=== PATIENT | female | born 1930 | race Caucasian/White ===

== ENCOUNTER 2017-03-22 06:46 | Inpatient (IN) ==
--- NOTE | 2017-03-21 17:10 | Discharge Summary ---
<Jayshree Wiggins E - Last Filed: 03/21/17 17:07> Date of Encounter: 03/21/17 - Discharge Diagnosis (1) Osteoarthritis of left hip Priority: Primary Status: Chronic Qualifiers: Osteoarthritis type: unspecified Qualified Code(s): M16.12 - Unilateral primary osteoarthritis, left hip (2) HTN (hypertension) Priority: Secondary Status: Chronic Qualifiers: Hypertension type: unspecified Qualified Code(s): I10 - Essential (primary ) hypertension (3) HLD (hyperlipidemia) Priority: Secondary Status: Chronic Qualifiers: Hyperlipidemia type: unspecified Qualified Code(s): E78.5 - Hyperlipidemia , unspecified (4) Hypothyroidism Priority: Secondary Status: Chronic Qualifiers: Hypothyroidism type: unspecified Qualified Code(s): E03.9 - Hypothyroidism , unspecified - Discharge Medications Home Medications: Aspirin Enteric Coated [Aspirin EC] 325 mg PO DAILY 21 Days #21 tablet. [Rx] OxyCODONE Immed Rel [Roxicodone 5 MG] 5 mg PO Q6HR PRN 7 Days #28 tablet [Rx] Ascorbate Calcium [Vitamin C] 500 mg PO DAILY 03/22/17 [History] Beclomethasone Diprop 40mcg [QVAR 40 mcg] 1 puff IH DAILY 03/22/17 [History] Cartilage/Collagen/Bor/Hyalur [Joint Health Tablet] 1 tab PO DAILY 03/22/17 [ History] Carvedilol 12.5 mg PO BID 03/22/17 [History] Fluticasone Propionate Nasal [Flonase] 1 spr NS DAILY 03/22/17 [History] Garlic [Daily Garlic Once-A-Day] 400 mg PO DAILY 03/22/17 [History] Gluc/Mark-MSM#1/C/Norberto/Ryan/Bor [Osteo Bi-Flex Caplet] 1 tab PO DAILY 03/22/17 [ History] Lecithin [Gram-O-Leci] 1,000 mg PO DAILY 03/22/17 [History] Levothyroxine Sodium [Levoxyl] 50 mcg PO DAILY 03/22/17 [History] Meloxicam [Mobic] 7.5 mg PO DAILY 03/22/17 [History] NIFEdipine [Afeditab Cr] 60 mg PO DAILY 03/22/17 [History] Nabumetone 750 mg PO BID 03/22/17 [History] [place]-3/Dha/Epa/Fish Oil [[place] 3 500 Softgel] 1 tab PO DAILY 03/22/17 [History] Ubidecarenone [Co Q-10] 50 mg PO DAILY 03/22/17 [History] Vitamin B Complex [B Complex] 1 tab PO DAILY 03/22/17 [History] Allergies/Adverse Reactions: 3 Allergy/AdvReac Type Severity Reaction Status Date / Time No Known Allergies Allergy Verified 03/22/17 08:18 Primary care physician: Navi Vang, - Patient Status Disposition: Home, Self-Care Condition: Good - Discharge Instructions Follow Up With: Navi Vang MD [Primary Care Provider] - - Hospital Course Hospital course: Ms. Armstrong is a 86 year old female - Time Spent with Patient Total time spent providing and/or coordinating discharge services: <Olman Mueller - Last Filed: 03/25/17 08:35> Date of Encounter: 03/25/17 Time of Encounter: 08:33 - Discharge Diagnosis (1) Osteoarthritis of left hip Priority: Primary Status: Chronic Qualifiers: Osteoarthritis type: unspecified Qualified Code(s): M16.12 - Unilateral primary osteoarthritis, left hip (2) HTN (hypertension) Priority: Secondary Status: Chronic Qualifiers: Hypertension type: unspecified Qualified Code(s): I10 - Essential (primary ) hypertension (3) HLD (hyperlipidemia) Priority: Secondary Status: Chronic Qualifiers: Hyperlipidemia type: unspecified Qualified Code(s): E78.5 - Hyperlipidemia , unspecified (4) Hypothyroidism Priority: Secondary Status: Chronic Qualifiers: Hypothyroidism type: unspecified Qualified Code(s): E03.9 - Hypothyroidism , unspecified (5) History of total left hip arthroplasty Priority: Primary Status: Acute (6) Acute blood loss anemia Priority: Primary Status: Acute (7) Hyponatremia Priority: Primary Status: Acute Primary care physician: Navi Vang, - Patient Status Functional capacity at discharge: uses cane/walker Overall status at discharge: patient is progressing back to baseline - Hospital Course Hospital course: Ms. Armstrong is a 86 year old female Status post left total hip replacement The patient had an uneventful postoperative course. They received antibiotics and physical therapy and were discharged in stable condition. There will follow -up in the office in 2 weeks. - Time Spent with Patient Total time spent providing and/or coordinating discharge services:
--- NOTE | 2017-03-21 17:12 | Physician Discharge Referral ---
ExtendedCare Referral Info Transfer To: [facility] Provider in Charge: Dr Olman Mueller - Diagnosis (1) History of total left hip arthroplasty Priority: Primary Status: Acute (2) Osteoarthritis of left hip Priority: Primary Status: Chronic (3) HTN (hypertension) Priority: Secondary Status: Chronic (4) HLD (hyperlipidemia) Priority: Secondary Status: Chronic (5) Hypothyroidism Priority: Secondary Status: Chronic Expected Duration of Placement: less than 30 days Prognosis: Good Aware of Diagnosis: Patient Aware of Prognosis: Patient - Transfer Medications Prescriptions: OxyCODONE Immed Rel [Roxicodone 5 MG] 5 mg PO Q6HR PRN 7 Days #28 tablet PRN Reason: Severe Pain Aspirin Enteric Coated [Aspirin EC] 325 mg PO DAILY 21 Days #21 tablet. Home Medications: Aspirin Enteric Coated [Aspirin EC] 325 mg PO DAILY 21 Days #21 tablet. [Rx] OxyCODONE Immed Rel [Roxicodone 5 MG] 5 mg PO Q6HR PRN 7 Days #28 tablet [Rx] Allergies/Adverse Reactions: 3 Allergy/AdvReac Type Severity Reaction Status Date / Time No Known Allergies Allergy Verified 03/02/17 16:11 - Respiratory Orders Smoking Cessation: Smoking cessation has been advised. For more information, call the [place] Tobacco Quit Line at 4-921-OSAC-NOW. - Ancillary Orders May use pressure relief devices daily prn, May go on HERMANN w/family/respon alliance party w /meds at nurse discretion PRN, May consult with Dentist, Golf Course Keeper, Auto Dismantler PRN - Mobility Orders Chair, Ambulate - Rehabiliation Orders Rehab Potential: Good Rehab Orders: Evaluation for Physical Therapy, Evaluation for Occupational Therapy Other: Total Hip replacement Precautions Apply cold therapy 3-6x/day for 20 minutes at a time. Encourage ambulation throughout the day and incentive spirometer 10x/hour. Elevate affected extremity as tolerated. Brace: Wear hip abduction pillow when laying/sleeping - Treatments Skin tear care topically daily PRN per policy List/Other: Opsite placed. Keep dressing intact until first follow up appointment. If > 50% saturated, notify office, remove dressing and place appropriate dressing back in place. Leave Zipline intact. Opsite dressing is water resistant, not water- proof. OK to shower, but do not get dressing wet. - Diet Orders Regular CERTIFICATION: I certify that the transfer of the above named patient to an Extended Care Facility is necessary for the continuing treatment of the diagnosis listed. The above information is true and accurate reflection of patient's current condition. Confidential - Redisclosure prohibited without a patient's written consent.
--- NOTE | 2017-03-22 06:58 | History & Physical Report ---
Date of Encounter: 03/22/17 Time of Encounter: 06:58 24 Hour HP Update - Instructions Instructions: If the History and Physical is less than 30 days old and was completed prior to A.M. admission and or procedure and has NOT been updated on calendar day of procedure please complete this update prior to performing procedure. - Update Patient reports changes in Medical Condition: No Changes in examination, assessment, or condition: No Changes in Medication: No Preop tests/diagnostics Reviewed: Yes Surgery Remains Indicated: Yes Consent for Planned Operative Procedure(s) Verified: Yes - Pre-Operative Checklist Preoperative Checklist Indicated: No Prophylactic Antibiotic Ordered: Yes Is VTE Prophylaxis Indicated?: Yes
[2017-03-22] MEDS ORDERED: Lidocaine -MPF 1% 2 ML VIAL ID ONE (07:05)
[2017-03-22] MEDS ORDERED: CeFAZolin Syr 2,000MG/20 ML 2,000 MG/20 ML SYRINGE IVPB ONE (07:05)
[2017-03-22] MEDS ORDERED: Lidocaine -MPF 4% 5 ML AMPUL ONE (07:07)
[2017-03-22] MEDS ORDERED: *HR* Succinylcholine 200 MG/10 ML VIAL IVP ONE (07:13)
[2017-03-22] MEDS ORDERED: Lidocaine -MPF 2% 2 ML VIAL ONE (07:13)
[2017-03-22] MEDS ORDERED: Ondansetron 4 MG/2 ML VIAL ONE (07:13)
[2017-03-22] MEDS ORDERED: Dexamethasone 4 MG/ML VIAL ONE (07:13)
[2017-03-22] MEDS ORDERED: Plasma-Lyte A (PH 7.4) 1,000 ML IVC SCH (07:15)
[2017-03-22] MEDS ORDERED: *HR* Propofol 200 MG/20 ML VIAL IVP ONE (07:16)
[2017-03-22] MEDS ORDERED: Acetaminophen IV 1,000 MG/100 ML INFUS..BTL ONE (07:19)
[2017-03-22] MEDS ORDERED: Bupivacaine/Clonidine Syringe 1 EACH SYRINGE ONE (07:20)
[2017-03-22] MEDS ORDERED: Ethanol\\Acetic Acid\\Na Ace\\Ben 1,000 ML IRRIG.SOLN IR ONE (07:29)
[2017-03-22] MEDS ORDERED: *HR* Morphine Sulfate/PF 10 MG/10 ML AMPUL ONE (07:53)
--- NOTE | 2017-03-22 08:02 | Anesthesia Evaluation PreOp ---
Date of Encounter: 03/22/17 Time of Encounter: 08:00 - Past History Planned Operation: left hip Cardiac History: HTN Pulmonary History: Asthma PAINTER TOUCH UP History: Denies Any Significant HX Other Medical History: Thyroid Anesthesia History: No Prior Anesthetic Complications Alcohol Use: none Drug use: none Medications and Allergies Aspirin Enteric Coated [Aspirin EC] 325 mg PO DAILY 21 Days #21 tablet. [Rx] OxyCODONE Immed Rel [Roxicodone 5 MG] 5 mg PO Q6HR PRN 7 Days #28 tablet [Rx] 3 Allergy/AdvReac Type Severity Reaction Status Date / Time No Known Allergies Allergy Verified 03/02/17 16:11 - Meds/Allergy Pre-op Review Medications Reviewed: Yes Allergies Reviewed: Yes Beta Blockers on Current Med List: Yes If Beta Blockers taken, Date/Time (Last Dose taken): coreg at 5am Anesthesia Results - Imaging EKG: report reviewed (NSR) Anesthesia Exam Vital Signs/O2 Sat/Glucose, Most Recent Temp Pulse Resp BP Pulse Ox 97.8 F 71 18 137/74 96 03/22/17 07:11 03/22/17 07:11 03/22/17 07:11 03/22/17 07:11 03/22/17 07:11 Height: 62" NPO (# of Hours): >8hr - HEENT Pupil (Motor): Pupils equal Mallampati: II Teeth: Missing Denture Type: Upper: Complete, Lower: Partial Oral Opening: Greater than 3 - PAINTER TOUCH UP LOC: Oriented PAINTER TOUCH UP Motor: Normal RUE, Normal LUE, Normal RLE, Normal LLE, Normal Face PAINTER TOUCH UP Sensory: Normal: RUE, LUE, RLE, LLE, Face - Cardiac Rhythm: Regular - Pulmonary Breath Sounds: bilateral Clear Respiratory Effort: Symmetrical Anesthesia Assess/Plan ASA Score: 3 (HTN, ASTHMA, AGE) Modified [place] Scale for Level of Consciousness: Cooperative, oriented, and tranquil Anesthetic Plan: Regional (WITH ETT AND PROPOFOL INFUSION) Monitoring Plan: Standard Monitors Recovery Plan: PACU
[2017-03-22] MEDS ORDERED: *HR* PHENYLEPHRINE 1,000 MCG/10 ML SYRINGE IVP ONE (08:32)
[2017-03-22] MEDS ORDERED: *HR* OxyCODONE/APAP 5/325 TABLET PO PRN ×2 (08:34→11:26)
[2017-03-22] MEDS ORDERED: Celecoxib 100 MG CAPSULE PO SCH (09:00)
[2017-03-22] MEDS ORDERED: EPHEDrine 50 MG/ML VIAL ONE (09:13)
--- NOTE | 2017-03-22 10:09 | Orthopedic Operative Note ---
Date of procedure: 03/22/17 Pre-op diagnosis: Left hip arthritis Post-op diagnosis: same Procedure: Procedure: Left Total Hip Replacment robotic-assisted Estimated blood loss: 200 cc Hardware: Metal and polyethylene replacement. Dionicio DM Cup: 56 cup Femoral size 8 stem Head: 8head with Salud Procedural Notes: Grade 4 arthritic changes femoral head acetabular socket, procedure performed with robotic assistance. Preoperative CT measure 18 mm short on the operative side compared to nonoperative Operative procedure: The patient was brought to the operating room and placed on the operating room table. After general anesthesia was administered the patient was placed in the lateral decubitus position with the operative leg up. All pressure points were padded appropriately and the head was stabilized in the neutral position. The operative extremity was prepped and draped in the sterile surgical fashion patient received IV antibiotic prior to skin incision. 3 Steinmann pins were placed in the iliac crest 3 cm proximal to the anterior superior iliac spine this was for the robotic-assisted sensor. This was done through a small 2 cm incision. A standard posterior approach is made to the operative hip, the incision was made through the skin and subcutaneous tissue hemostasis was obtained with Bovie cautery. Using careful sharp dissection the fascia was identified and incised exposing the external rotators. The femoral checkpoint was placed leg length was measured at this time utilizing robotic assistance. The external rotators were released off the greater trochanter and tagged with # 2 FiberWire suture. The capsule was T'd open and the hip was brought into internal rotation. Patient noted to have grade 4 arthritic changes femoral head. The femoral neck cut was made at the appropriate level roughly 18 mm proximal to the lesser trochanter aced on preoperative templating. An anterior capsulotomy was performed for the anterior retractor. Soft tissues removed from the acetabulum. Patient noted to have grade 4 arthritic changes acetabulum. The acetabulum checkpoint was placed confirmed. The acetabulum was then mapped with robotic assistance. Based on the preoperative plan the acetabulum was reamed in one step with a 55 reamer. The 56 acetabulum was impacted with robotic assistance and 40 degrees of abduction and 11 degrees of anteversion. The hip was brought back in to internal rotation and prepared with the hot box checker followed by the canal finder followed by the reaming process to a size X broaching process in 20 degrees anteversion. It was broached up to the appropriate size 8. Trial reduction revealed leg lengths close to normal. The femoral implant was impacted in place in 20 degrees of anteversion. Trial reduction found the hip to be stable with 8 head and Salud. The trials were removed and the real implants were impacted in place. The hip was reduced, patient had robotic confirmed leg length of 1 mm shorter than the contralateral side. The hip had excellent stability with forward flexion to 90 degrees adduction of 30 degrees and internal rotation of 60 degrees. The hip had no shuck. The hips after 2 minutes with a antibacterial saline solution. It was irrigated out with 2 L of pulse irrigation. The checkpoints were removed, Steinmann pins were removed. The hip was closed by the PA. The deep tissue was irrigated and closed deep with #1 PDS suture superficially with 0 PDS suture and skin was closed with Dermabond and zip tie. The patient was placed in a sterile dressing and abduction pillow. The patient was extubated and transferred to the recovery room in stable condition. Anesthesia: GETA Surgeon: Olman Mueller Was there an diagnostic assistant present: No Estimated blood loss (cc): 200 Condition: stable Disposition: PACU
[2017-03-22 10:59] LABS: Hematocrit 32.9 % (35.3-44.9)
--- NOTE | 2017-03-22 11:21 | Anesthesia Evaluation Post Op ---
Date of Encounter: 03/22/17 Time of Encounter: 11:20 - Vital Signs Vital Signs: Vital Signs/O2 Sat, Most Current Temp Pulse Resp BP Pulse Ox 97.0 F L 68 16 107/67 96 03/22/17 11:05 03/22/17 11:15 03/22/17 11:15 03/22/17 11:15 03/22/17 11:15 - Lungs Lungs: Clear Ascult./Percussion - Airway Airway: Non-obstructed - Cardiovascular Regular Rate - Mental Status Mental Status: Asleep with brisk response to light stimulation - Pain Pain Scale: 0 Pain Scale used: Numeric (1 - 10) - Nausea Vomiting Nausea Vomiting: Not Present - Hydration Hydration: NPO, Has not voided - Discharge PostOp Status: Transfer Patient to floor
[2017-03-22] MEDS ORDERED: MOM Conc 10 ML UD.LIQ PO PRN (11:26)
[2017-03-22] MEDS ORDERED: Naloxone 0.4 MG/ML INJ IVP PRN (11:26)
[2017-03-22] MEDS ORDERED: Temazepam 15 MG CAPSULE PO PRN (11:26)
[2017-03-22] MEDS ORDERED: Sennosides 8.6 MG TABLET PO PRN (11:26)
[2017-03-22] MEDS ORDERED: Ondansetron 4 MG/2 ML VIAL IVP PRN (11:26)
[2017-03-22] MEDS: CeFAZolin Premix DUPLEX 2,000 MG/50 ML BAG IVPB SCH ×2 (15:20→23:17)
[2017-03-22] MEDS: Ringers Solution, Lactated 1,000 ML IVC SCH (15:21)
[2017-03-22] MEDS: COLLAGEN PO SCH (15:22)
[2017-03-22] MEDS: BOR PO SCH (15:22)
[2017-03-22] MEDS: HYALUR PO SCH (15:22)
[2017-03-22] MEDS: CARTILAGE PO SCH (15:22)
[2017-03-22] MEDS: Fluticasone Propionate Nasal 50 MCG/SPRAY BOTTLE NS SCH (15:22)
[2017-03-22] MEDS: GARLIC 400 MG PO SCH (15:22)
[2017-03-22] MEDS: DHA PO SCH (15:23)
[2017-03-22] MEDS: EPA PO SCH (15:23)
[2017-03-22] MEDS: FISH OIL PO SCH (15:23)
[2017-03-22] MEDS: OMEGA PO SCH (15:23)
[2017-03-22] MEDS: UBIDECARENONE 50 MG PO SCH (15:23)
[2017-03-22] MEDS: Patient Taking Own Medication 1 EACH PO SCH (15:23)
[2017-03-22] MEDS: Vitamin B Complex/Vit C/Vit E 1 EACH TABLET PO SCH (15:25)
[2017-03-22] MEDS: NIFEdipine XL (24 HR) 60 MG TAB.ER.24 PO SCH (15:25)
[2017-03-22] MEDS: Multivit/Ca/Min/Fe/FA 1 TAB TABLET PO SCH (15:26)
[2017-03-22] MEDS: Ascorbic Acid 500 MG TABLET PO SCH ×2 (15:26→16:58)
[2017-03-22] MEDS: Beclomethasone 40mcg MDI IH SCH (16:03)
[2017-03-22] MEDS: *HR* Enoxaparin 30 MG/0.3 ML SYRINGE SQ SCH (16:58)
[2017-03-22] MEDS ORDERED: *HR* Enoxaparin 30 MG/0.3 ML SYRINGE SQ SCH (18:00)
[2017-03-23] MEDS: *HR* Enoxaparin 30 MG/0.3 ML SYRINGE SQ SCH ×2 (05:20→16:59)
[2017-03-23] MEDS: Ringers Solution, Lactated 1,000 ML IVC SCH (05:21)
--- NOTE | 2017-03-23 06:56 | Orthopedics Progress Note ---
Date of Encounter: 03/23/17 Time of Encounter: 06:56 - Assessment and Plan (1) Osteoarthritis of left hip Current Visit: No Status: Chronic Qualifiers: Osteoarthritis type: unspecified Qualified Code(s): M16.12 - Unilateral primary osteoarthritis, left hip (2) HTN (hypertension) Current Visit: No Status: Chronic Qualifiers: Hypertension type: unspecified Qualified Code(s): I10 - Essential (primary ) hypertension (3) HLD (hyperlipidemia) Current Visit: No Status: Chronic Qualifiers: Hyperlipidemia type: unspecified Qualified Code(s): E78.5 - Hyperlipidemia , unspecified (4) Hypothyroidism Current Visit: No Status: Chronic Qualifiers: Hypothyroidism type: unspecified Qualified Code(s): E03.9 - Hypothyroidism , unspecified (5) History of total left hip arthroplasty Current Visit: No Status: Acute Subjective Interval history: Patient was seen this morning doing well without complaints. Afebrile vital signs stable. Operative extremity: Neurovascularly intact Dressing clean dry and intact Calves nontender Assessment and plan: Continue with postoperative care Hematocrit 32 Objective Vital signs: Vital Signs Temp Pulse Resp BP Pulse Ox 03/23/17 06:39 98.6 F 86 15 106/66 95 03/23/17 03:45 97.7 F 97 17 96/62 94 03/22/17 23:51 97.5 F L 91 16 99/65 95 03/22/17 20:19 97.6 F 65 17 118/70 93 03/22/17 17:00 64 13 116/70 92 03/22/17 14:23 97.4 F L 64 13 116/70 92 03/22/17 13:30 97.5 F L 67 16 112/65 95 03/22/17 12:59 96.7 F L 03/22/17 12:42 66 16 123/78 92 03/22/17 12:04 95.1 F L 67 16 125/73 94 03/22/17 11:37 95.5 F L 62 15 104/69 97 03/22/17 11:25 97.6 F 72 16 111/62 94 03/22/17 11:15 68 16 107/67 96 03/22/17 11:05 97.0 F L 73 16 98/63 94 03/22/17 10:55 80 16 92/59 96 03/22/17 10:45 78 14 93/58 94 03/22/17 10:35 98.0 F 68 12 81/56 96 03/22/17 07:11 97.8 F 71 18 137/74 96 Intake and Output 03/22/17 03/22/17 03/23/17 15:59 23:59 07:59 Intake Total 360 / 360 1500 / 1500 1100 / 1100 Output Total 200 / 200 600 / 600 Balance 160 / 160 900 / 900 1100 / 1100 Intake: IV Fluids 50 / 50 1050 / 1050 Lactated Ringers 1,000 ML @ 75 1000 / 1000 mls/hr IVC .[id number] SAMMIE Rx#: [id number] Ancef Premix DUPLEX 2,000 mg In 50 / 50 50 / 50 50 ml @ 100 mls/hr IVPB Q8HR SAMMIE Rx#:[id number] Oral 360 / 360 1450 / 1450 50 / 50 Output: Urine 600 / 600 Estimated Blood Loss 200 / 200 Other: Meal clears Dinner Percent of Meal Consumed 10% - Labs CBC & BMP: 03/22/17 10:47 Labs: Abnormal lab results Hgb 11.0 g/dL (11.5-15.4) L 03/22/17 10:47 Hct 32.9 % (35.3-44.9) L 03/22/17 10:47 - VTE Documentation of Mechanical Device: Venous foot pump, device Consult Discharge Plan - Plan Referrals: Navi Vang MD [Primary Care Provider] -
[2017-03-23 07:34] LABS: Hematocrit 30.9 % (35.3-44.9); Hemoglobin 10.1 g/dL (11.5-15.4)
[2017-03-23] MEDS: Beclomethasone 40mcg MDI IH SCH (08:20)
[2017-03-23] MEDS: Ascorbic Acid 500 MG TABLET PO SCH ×3 (09:21→16:59)
[2017-03-23] MEDS: Vitamin B Complex/Vit C/Vit E 1 EACH TABLET PO SCH (09:22)
[2017-03-23] MEDS: Multivit/Ca/Min/Fe/FA 1 TAB TABLET PO SCH (09:22)
[2017-03-23] MEDS: Fluticasone Propionate Nasal 50 MCG/SPRAY BOTTLE NS SCH (09:23)
[2017-03-23] MEDS: BOR PO SCH (09:23)
[2017-03-23] MEDS: HYALUR PO SCH (09:23)
[2017-03-23] MEDS: GARLIC 400 MG PO SCH (09:23)
[2017-03-23] MEDS: CARTILAGE PO SCH (09:23)
[2017-03-23] MEDS: COLLAGEN PO SCH (09:23)
[2017-03-23] MEDS: Patient Taking Own Medication 1 EACH PO SCH (09:24)
[2017-03-23] MEDS: FISH OIL PO SCH (09:24)
[2017-03-23] MEDS: DHA PO SCH (09:24)
[2017-03-23] MEDS: NIFEdipine XL (24 HR) 60 MG TAB.ER.24 PO SCH (09:24)
[2017-03-23] MEDS: UBIDECARENONE 50 MG PO SCH (09:24)
[2017-03-23] MEDS: OMEGA PO SCH (09:24)
[2017-03-23] MEDS: EPA PO SCH (09:24)
[2017-03-23 09:28] LABS: BUN/Creatinine Ratio 33 (6-26); Blood Urea Nitrogen 23 mg/dL (8-23); Calcium 8.4 mg/dL (8.6-10.3); Carbon Dioxide 26 mEq/L (23-29); Chloride 101 mEq/L (98-107); Glucose 121 mg/dL (70-105); Osmolality,Calculated 281 (280-300); Potassium 3.6 mEq/L (3.5-5.1); Sodium 133 mEq/L (136-145); eGFR For African Americans > 60 (> 60); eGFR For Non-African Americans > 60 (> 60)
[2017-03-23] MEDS: Acetaminophen 325 MG TABLET PO PRN (12:02)
[2017-03-23] MEDS ORDERED: *HR* OxyCODONE Immed Rel 5 MG TABLET PO PRN (12:08)
--- NOTE | 2017-03-23 17:03 | Event Note ---
Date of Encounter: 03/23/17 Time of Encounter: 12:50 PCR- POD#1 L THR robotic Mueller 03/22/17 PCR - Patient seen at bedside. Pain control: Adequate Participating in PT. All questions and concerns addressed. Educated on use of incentive spirometer, ambulation, and hydration. Patient educated on post-operative restrictions and care. Addressed: Hypotension - appears to be medication induced - specifically pain medication. Will trial step down to [place] to see if patient tolerates better with regard to blood pressure. 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 D/C plan: Home with home health
--- NOTE | 2017-03-23 17:20 | Physician Discharge Referral ---
Home Health/Hosp Referral Info Transfer to: Home Health Attending Provider: Dr Olman Mueller - Diagnosis (1) History of total left hip arthroplasty Priority: Primary Status: Acute (2) Osteoarthritis of left hip Priority: Primary Status: Chronic (3) HTN (hypertension) Priority: Secondary Status: Chronic (4) HLD (hyperlipidemia) Priority: Secondary Status: Chronic (5) Hypothyroidism Priority: Secondary Status: Chronic - Respiratory Orders Smoking Cessation: Smoking cessation has been advised. For more information, call the [place] Tobacco Quit Line at 0-541-YJGS-NOW. - Dressing/Wound Care Site: left hip Type of Dressing/Treatments w/Frequency: Opsite placed. Keep dressing intact until first follow up appointment. If > 50% saturated, notify office, remove dressing and place appropriate dressing back in place. Leave Ziplines intact. Opsite dressing is water resistant, not water- proof. OK to shower, but do not get dressing wet. - Diet/Nutrition Diet/Nutrition Orders: Regular - Activity Activity Orders: Up ad oksana, Ambulate, Chair, Walker Activity: List: Total Hip replacement Precautions Apply cold therapy 3-6x/day for 20 minutes at a time. Encourage ambulation throughout the day and incentive spirometer 10x/hour. Elevate affected extremity as tolerated. Brace: Wear hip abduction pillow when laying/sleeping - Services Needed Following services are medically necessary services: Nursing, Home Health Aide, Physical Therapy, Occupational Therapy - Transfer Medications Home Medications: Aspirin Enteric Coated [Aspirin EC] 325 mg PO DAILY 21 Days #21 tablet. [Rx] OxyCODONE Immed Rel [Roxicodone 5 MG] 5 mg PO Q6HR PRN 7 Days #28 tablet [Rx] Ascorbate Calcium [Vitamin C] 500 mg PO DAILY 03/22/17 [History] Beclomethasone Diprop 40mcg [QVAR 40 mcg] 1 puff IH DAILY 03/22/17 [History] Cartilage/Collagen/Bor/Hyalur [Joint Health Tablet] 1 tab PO DAILY 03/22/17 [ History] Carvedilol 12.5 mg PO BID 03/22/17 [History] Fluticasone Propionate Nasal [Flonase] 1 spr NS DAILY 03/22/17 [History] Garlic [Daily Garlic Once-A-Day] 400 mg PO DAILY 03/22/17 [History] Gluc/Mark-MSM#1/C/Norberto/Ryan/Bor [Osteo Bi-Flex Caplet] 1 tab PO DAILY 03/22/17 [ History] Lecithin [Gram-O-Leci] 1,000 mg PO DAILY 03/22/17 [History] Levothyroxine Sodium [Levoxyl] 50 mcg PO DAILY 03/22/17 [History] Meloxicam [Mobic] 7.5 mg PO DAILY 03/22/17 [History] NIFEdipine [Afeditab Cr] 60 mg PO DAILY 03/22/17 [History] Nabumetone 750 mg PO BID 03/22/17 [History] [place]-3/Dha/Epa/Fish Oil [[place] 3 500 Softgel] 1 tab PO DAILY 03/22/17 [History] Ubidecarenone [Co Q-10] 50 mg PO DAILY 03/22/17 [History] Vitamin B Complex [B Complex] 1 tab PO DAILY 03/22/17 [History] Allergies/Adverse Reactions: 3 Allergy/AdvReac Type Severity Reaction Status Date / Time No Known Allergies Allergy Verified 03/22/17 08:18 Certification: Further, I certify that my clinical findings support that this patient is homebound (i.e. absences from home require considerable and taxing effort and are for medical reasons or taoist services or infrequently or short duration when for other reasons) because: Homebound Reason: Post-surgery restriction and or conditions limit ability to leave home Attestation: My signature below is to certify that this patient is under my care and that I, or nurse practitioner, or a physician technical staff assistant working with me, has a face-to- face encounter with this patient.
[2017-03-23] MEDS: *HR* HYDROcodone/Acet 5/325 mg TABLET PO PRN (21:35)
[2017-03-24] MEDS: Acetaminophen 325 MG TABLET PO PRN (01:09)
[2017-03-24] MEDS: *HR* HYDROcodone/Acet 5/325 mg TABLET PO PRN ×4 (05:44→21:37)
[2017-03-24] MEDS: *HR* Enoxaparin 30 MG/0.3 ML SYRINGE SQ SCH ×2 (05:44→16:57)
[2017-03-24 06:19] LABS: Hematocrit 24.7 % (35.3-44.9)
[2017-03-24 06:30] LABS: Hemoglobin 8.1 g/dL (11.5-15.4)
[2017-03-24 06:36] LABS: BUN/Creatinine Ratio 38 (6-26); Blood Urea Nitrogen 32 mg/dL (8-23); Calcium 8.3 mg/dL (8.6-10.3); Carbon Dioxide 28 mEq/L (23-29); Chloride 98 mEq/L (98-107); Glucose 97 mg/dL (70-105); Osmolality,Calculated 275 (280-300); Potassium 3.7 mEq/L (3.5-5.1); Sodium 129 mEq/L (136-145); eGFR For African Americans > 60 (> 60); eGFR For Non-African Americans > 60 (> 60)
[2017-03-24] MEDS ORDERED: Furosemide 20 MG/2 ML VIAL IVP PRN (07:42)
[2017-03-24] MEDS ORDERED: 0.9 % Sodium Chloride 250 ML IVC SCH (07:45)
[2017-03-24] MEDS: Beclomethasone 40mcg MDI IH SCH (07:46)
[2017-03-24] MEDS: Ascorbic Acid 500 MG TABLET PO SCH ×3 (09:06→16:57)
[2017-03-24] MEDS: Multivit/Ca/Min/Fe/FA 1 TAB TABLET PO SCH (09:06)
[2017-03-24] MEDS: Vitamin B Complex/Vit C/Vit E 1 EACH TABLET PO SCH (09:06)
[2017-03-24] MEDS: COLLAGEN PO SCH (09:13)
[2017-03-24] MEDS: NIFEdipine XL (24 HR) 60 MG TAB.ER.24 PO SCH (09:13)
[2017-03-24] MEDS: EPA PO SCH (09:13)
[2017-03-24] MEDS: HYALUR PO SCH (09:13)
[2017-03-24] MEDS: CARTILAGE PO SCH (09:13)
[2017-03-24] MEDS: Fluticasone Propionate Nasal 50 MCG/SPRAY BOTTLE NS SCH (09:13)
[2017-03-24] MEDS: UBIDECARENONE 50 MG PO SCH (09:13)
[2017-03-24] MEDS: FISH OIL PO SCH (09:13)
[2017-03-24] MEDS: GARLIC 400 MG PO SCH (09:13)
[2017-03-24] MEDS: OMEGA PO SCH (09:13)
[2017-03-24] MEDS: Patient Taking Own Medication 1 EACH PO SCH (09:13)
[2017-03-24] MEDS: DHA PO SCH (09:13)
[2017-03-24] MEDS: BOR PO SCH (09:13)
--- NOTE | 2017-03-24 10:30 | Orthopedics Progress Note ---
Date of Encounter: 03/24/17 Time of Encounter: 10:29 - Assessment and Plan (1) Osteoarthritis of left hip Current Visit: No Status: Chronic Qualifiers: Osteoarthritis type: unspecified Qualified Code(s): M16.12 - Unilateral primary osteoarthritis, left hip (2) HTN (hypertension) Current Visit: No Status: Chronic Qualifiers: Hypertension type: unspecified Qualified Code(s): I10 - Essential (primary ) hypertension (3) HLD (hyperlipidemia) Current Visit: No Status: Chronic Qualifiers: Hyperlipidemia type: unspecified Qualified Code(s): E78.5 - Hyperlipidemia , unspecified (4) Hypothyroidism Current Visit: No Status: Chronic Qualifiers: Hypothyroidism type: unspecified Qualified Code(s): E03.9 - Hypothyroidism , unspecified (5) History of total left hip arthroplasty Current Visit: No Status: Acute (6) Acute blood loss anemia Current Visit: Yes Status: Acute Subjective Interval history: Patient was seen this morning doing well without complaints. Afebrile vital signs stable. Operative extremity: Neurovascularly intact Dressing clean dry and intact Calves nontender Assessment and plan: Continue with postoperative care Hemoglobin 24.7 transfuse 2 units Objective Vital signs: Vital Signs Temp Pulse Resp BP Pulse Ox 03/24/17 07:58 98.3 F 74 16 108/64 95 03/24/17 00:09 98.5 F 87 17 122/63 95 03/23/17 19:38 98.6 F 89 16 109/65 94 03/23/17 15:15 98.0 F 83 16 99/64 93 03/23/17 11:29 97.9 F 78 16 107/65 94 Intake and Output 03/23/17 03/24/17 03/24/17 23:59 07:59 15:59 Intake Total 100 / 100 Balance 100 / 100 Intake: Oral 100 / 100 - Labs CBC & BMP: 03/24/17 05:55 03/24/17 05:55 Labs: Abnormal lab results Hgb 8.1 g/dL (11.5-15.4) L D 03/24/17 05:55 Hct 24.7 % (35.3-44.9) L 03/24/17 05:55 Sodium 129 mEq/L (136-145) L 03/24/17 05:55 BUN 32 mg/dL (8-23) H 03/24/17 05:55 BUN/Creatinine Ratio 38 (6-26) H 03/24/17 05:55 Calculated Osmolality 275 (280-300) L 03/24/17 05:55 Calcium 8.3 mg/dL (8.6-10.3) L 03/24/17 05:55 - VTE Documentation of Mechanical Device: Venous foot pump, device Consult Discharge Plan - Plan Referrals: Navi Vang MD [Primary Care Provider] -
[2017-03-25 04:41] LABS: Hematocrit 28.6 % (35.3-44.9); Hemoglobin 9.6 g/dL (11.5-15.4)
[2017-03-25 05:17] LABS: BUN/Creatinine Ratio 34 (6-26); Blood Urea Nitrogen 21 mg/dL (8-23); Calcium 8.4 mg/dL (8.6-10.3); Carbon Dioxide 27 mEq/L (23-29); Chloride 99 mEq/L (98-107); Glucose 93 mg/dL (70-105); Osmolality,Calculated 277 (280-300); Potassium 3.9 mEq/L (3.5-5.1); Sodium 132 mEq/L (136-145); eGFR For African Americans > 60 (> 60); eGFR For Non-African Americans > 60 (> 60)
[2017-03-25] MEDS: *HR* Enoxaparin 30 MG/0.3 ML SYRINGE SQ SCH (05:25)
[2017-03-25] MEDS: *HR* HYDROcodone/Acet 5/325 mg TABLET PO PRN ×2 (05:36→12:02)
[2017-03-25] MEDS: Beclomethasone 40mcg MDI IH SCH (07:49)
--- NOTE | 2017-03-25 08:36 | Orthopedics Progress Note ---
Date of Encounter: 03/25/17 Time of Encounter: 08:36 - Assessment and Plan (1) Osteoarthritis of left hip Current Visit: No Status: Chronic Qualifiers: Osteoarthritis type: unspecified Qualified Code(s): M16.12 - Unilateral primary osteoarthritis, left hip (2) HTN (hypertension) Current Visit: No Status: Chronic Qualifiers: Hypertension type: unspecified Qualified Code(s): I10 - Essential (primary ) hypertension (3) HLD (hyperlipidemia) Current Visit: No Status: Chronic Qualifiers: Hyperlipidemia type: unspecified Qualified Code(s): E78.5 - Hyperlipidemia , unspecified (4) Hypothyroidism Current Visit: No Status: Chronic Qualifiers: Hypothyroidism type: unspecified Qualified Code(s): E03.9 - Hypothyroidism , unspecified (5) History of total left hip arthroplasty Current Visit: No Status: Acute (6) Acute blood loss anemia Current Visit: Yes Status: Acute (7) Hyponatremia Current Visit: Yes Status: Acute Subjective Interval history: Patient was seen this morning doing well without complaints. Afebrile vital signs stable. Operative extremity: Neurovascularly intact Dressing clean dry and intact Calves nontender Assessment and plan: Continue with postoperative care dc today Objective Vital signs: Vital Signs Temp Pulse Resp BP Pulse Ox 03/25/17 07:50 16 96 03/25/17 06:50 98.3 F 73 16 121/74 96 03/25/17 03:56 98.1 F 78 14 118/78 95 03/24/17 23:42 98.5 F 79 15 112/73 96 03/24/17 19:43 98.6 F 88 16 119/72 94 03/24/17 16:57 99 F 92 16 92/54 95 03/24/17 16:42 98.7 F 90 16 90/54 03/24/17 15:09 98.5 F 90 16 113/67 94 03/24/17 15:07 98.5 F 90 16 113/67 94 03/24/17 12:20 98.4 F 88 14 110/65 93 03/24/17 12:05 98.7 F 83 16 103/65 94 Intake and Output 03/24/17 03/25/17 03/25/17 23:59 07:59 15:59 Intake Total 281 / 281 Output Total 1050 / 1050 Balance 281 / 281 -1050 / -1050 Intake: IV Fluids 1 / 1 0.9 % Sodium Chloride 250 ML @ 25 mls/hr IVC .Q10H SAMMIE Rx#: [id number] Blood Product 280 / 280 Rbcs Leuko Poor As-3 Ph Unit 280 / 280 [id number] Output: Urine 1050 / 1050 Other: # Voids 2 - Labs CBC & BMP: 03/25/17 04:07 03/25/17 04:07 Labs: Abnormal lab results Hgb 9.6 g/dL (11.5-15.4) L D 03/25/17 04:07 Hct 28.6 % (35.3-44.9) L 03/25/17 04:07 Sodium 132 mEq/L (136-145) L 03/25/17 04:07 BUN/Creatinine Ratio 34 (6-26) H 03/25/17 04:07 Calculated Osmolality 277 (280-300) L 03/25/17 04:07 Calcium 8.4 mg/dL (8.6-10.3) L 03/25/17 04:07 - VTE Documentation of Mechanical Device: Venous foot pump, device Consult Discharge Plan - Plan Referrals: Navi Vang MD [Primary Care Provider] -
[2017-03-25 09:48] VITALS: BP 100/60
[2017-03-25] MEDS: Multivit/Ca/Min/Fe/FA 1 TAB TABLET PO SCH ×2 (10:01→10:11)
[2017-03-25] MEDS: Ascorbic Acid 500 MG TABLET PO SCH ×3 (10:01→10:11)
[2017-03-25] MEDS: NIFEdipine XL (24 HR) 60 MG TAB.ER.24 PO SCH ×2 (10:02→10:11)
[2017-03-25] MEDS: Vitamin B Complex/Vit C/Vit E 1 EACH TABLET PO SCH ×2 (10:02→10:11)
[2017-03-25] MEDS: Patient Taking Own Medication 1 EACH PO SCH (10:02)
[2017-03-25] MEDS: BOR PO SCH (10:03)
[2017-03-25] MEDS: DHA PO SCH (10:03)
[2017-03-25] MEDS: COLLAGEN PO SCH (10:03)
[2017-03-25] MEDS: UBIDECARENONE 50 MG PO SCH (10:03)
[2017-03-25] MEDS: HYALUR PO SCH (10:03)
[2017-03-25] MEDS: GARLIC 400 MG PO SCH (10:03)
[2017-03-25] MEDS: CARTILAGE PO SCH (10:03)
[2017-03-25] MEDS: OMEGA PO SCH (10:03)
[2017-03-25] MEDS: EPA PO SCH (10:03)
[2017-03-25] MEDS: FISH OIL PO SCH (10:03)
[2017-03-25] MEDS: Fluticasone Propionate Nasal 50 MCG/SPRAY BOTTLE NS SCH (10:03)
== END 2017-03-25 13:29 | disposition home or self-care (01) | DRG 470 ==
LOC: SAMDAY 06:46 → 3NENU 11:51
PROVIDERS: ADMIT Orthopaedic Surgery; ATTEND Orthopaedic Surgery